=== PATIENT | female | born 1980 | race Caucasian/White ===

== ENCOUNTER 2024-11-14 11:37 | Emergency (ER) | payer MEDICARE, OTHER | END 2024-11-14 12:28 | disposition home or self-care (01) | LOC: JD.ED 11:37 | DX: R59.0 Localized enlarged lymph nodes (principal); Z79.899 Other long term (current) drug therapy; Z88.6 Allergy status to analgesic agent; Z88.5 Allergy status to narcotic agent | CPT/HCPCS: 99283 ==